=== PATIENT | male | born 1975 | race Hispanic/Latino ===

== ENCOUNTER 2018-07-23 17:26 | Emergency (ER) | payer SELFPAY ==
[2018-07-23] MEDS ORDERED: Acetaminophen 500 MG TAB ONE (18:27)
[2018-07-23] MEDS ORDERED: Ibuprofen 800 MG TAB ONE (18:27)
--- NOTE | 2018-07-23 18:56 | RAD ---
THREE VIEWS LEFT WRIST: 07/23/18 HISTORY: Trauma. Left wrist pain. AP, lateral, and oblique views left wrist is obtained. There is a comminuted fracture in the distal l eft radius extending into the articulating surface of the radiocarpal joint. There is posterior angul ation of the distal radial fracture. Ulnar styloid fracture also seen. IMPRESSION: 1. Ulnar styloid fracture and comminuted distal left radial fracture. 2. There is also some widening of the naviculoscaphoid joint. POS: [facility]
== END 2018-07-23 18:48 | disposition home or self-care (01) ==
LOC: ERS 17:26
DX: S52.502A Unspecified fracture of the lower end of left radius, initial encounter for closed fracture (principal); S52.612A Displaced fracture of left ulna styloid process, initial encounter for closed fracture; W17.89XA Other fall from one level to another, initial encounter
CPT/HCPCS: 29125